=== PATIENT | female | born 1960 | race Caucasian/White ===

== ENCOUNTER 2023-12-12 16:05 | Observation (INO) | payer OTHER ==
[~2023-12-12] VITALS: Ht 172.7 cm; Wt 72.5 kg
[2023-12-12] MEDS ORDERED: ZINC220CA PO (16:20)
[2023-12-12] MEDS ORDERED: LISI10TA22 PO (16:20)
[2023-12-12] MEDS ORDERED: B-1100TA2 PO (16:20)
[2023-12-12] MEDS ORDERED: VITA250T27 PO (16:20)
[2023-12-12] MEDS ORDERED: OCUVTAB4 PO (16:20)
[2023-12-12 16:47] LABS: BASO # 0.1 10^3/uL (0.0-0.2); BASO % 0.8 % (0.0-1.0); EOS # 0.3 10^3/uL (0.0-0.5); EOS % 4.2 % (0.0-3.0); HEMATOCRIT 44.1 % (36.0-47.0); HEMOGLOBIN 14.8 g/dl (12.0-15.5); LYMPH # 1.7 10^3/uL (1.5-5.0); LYMPH % 26.9 % (24.0-44.0); MEAN CORPUSCULAR HEMOGLOBIN 33.3 pg (27.0-33.0); MEAN CORPUSCULAR HGB CONC 33.6 g/dl (32.0-36.5); MEAN CORPUSCULAR VOLUME 99.3 fl (80.0-96.0); MONO # 0.6 10^3/uL (0.0-0.8); MONO % 9.4 % (2.0-8.0); NEUTROPHILS # 3.7 10^3/uL (1.5-8.5); NEUTROPHILS % 58.5 % (36.0-66.0); PLATELET COUNT, AUTOMATED 315 10^3/uL (150-450); RED BLOOD COUNT 4.44 10^6/uL (4.00-5.40); WHITE BLOOD COUNT 6.4 10^3/uL (4.0-10.0)
[2023-12-12] MEDS: EPINEPHrine INJ 1 MG/ML 1ML AMP IM STA (16:50)
[2023-12-12 16:54] LABS: ERYTHROCYTE SEDIMENTATION RATE 12 mm/hr (0-30)
[2023-12-12] MEDS: diphenhydrAMINE 50MG/ML VIAL IV ONE (16:55)
[2023-12-12] MEDS: methylPREDNISolone 125MG 2ML VIAL IV ONE (16:56)
[2023-12-12] MEDS: FAMOTIDINE 20MG/2ML VIAL IVP ONE (17:01)
[2023-12-12 17:06] LABS: C REACTIVE PROTEIN QUANTITATIV < 0.40 MG/DL (<1.0)
[2023-12-12 17:08] LABS: ALKALINE PHOSPHATASE 74 U/L (46-116); ALT/SGPT 27 U/L (7.0-40); AST/SGOT 22 U/L (<34); BILIRUBIN,DIRECT 0.2 MG/DL (<0.4); BLOOD UREA NITROGEN 21 MG/DL (9-23); CARBON DIOXIDE LEVEL 30 MMOL/L (20-31); CHLORIDE LEVEL 105 MMOL/L (98-107); CREATININE FOR GFR 0.68 MG/DL (0.55-1.30); GLOMERULAR FILTRATION RATE > 60.0 (>45); GLUCOSE, FASTING 113 MG/DL (74-106); POTASSIUM SERUM 4.4 MMOL/L (3.5-5.1); SODIUM LEVEL 141 MMOL/L (136-145); TOTAL PROTEIN 7.7 G/DL (5.7-8.2)
[2023-12-12 17:09] LABS: COMPLEMENT C4 29.3 MG/DL (12-36)
[2023-12-12] MEDS: C1 ESTERASE INHIBITOR IV ONE (18:02)
[2023-12-12] MEDS ORDERED: DEXTROSE 50% 50ML SYRINGE IV PRN (18:05)
[2023-12-12] MEDS ORDERED: GLUCAGON INJ 1MG VIAL SC PRN (18:05)
[2023-12-12] MEDS ORDERED: GLUCOSE 4 GM CHEW PO PRN (18:05)
[2023-12-12] MEDS ORDERED: hydrALAZINE 20MG/ML 1ML VIAL IV PRN (18:10)
[2023-12-12] MEDS: NS 1,000 ML IV SCH (18:28)
[2023-12-12] MEDS ORDERED: HOME MED LIST COMPLETE! XX SCH (19:20)
[2023-12-12 21:58] VITALS: BP 178/91; TEMP 97.9; O2SAT 95
[2023-12-13] VITALS (7 sets, daily range): BP systolic 149–170; BP diastolic 61–93; TEMP 97.9–98.5; O2SAT 93–94
[2023-12-13] MEDS: diphenhydrAMINE 50MG/ML VIAL IV SCH (00:07)
[2023-12-13] MEDS: methylPREDNISolone 125MG 2ML VIAL IV SCH (00:07)
[2023-12-13] MEDS: FAMOTIDINE 20MG/2ML VIAL IVP SCH (09:00)
[2023-12-13] MEDS ORDERED: ACETAMINOPHEN TAB 650MG DOSE (2X325MG) PO PRN (09:40)
[2023-12-13] MEDS ORDERED: PRED10TA2 PO (11:35)
[2023-12-13] MEDS ORDERED: AMLO1TAB25 PO (11:35)
[2023-12-13] MEDS: CARVedilol 6.25 MG TAB PO ONE (11:57)
[2023-12-13] MEDS ORDERED: CARV6.25 PO (13:10)
== END 2023-12-13 15:57 | disposition home or self-care (01) ==
LOC: M ED 16:05 → M ED INP 16:06 → M ICU 21:53
PROVIDERS: ADMIT Internal Medicine; ATTEND Internal Medicine
DX: G52.1 Disorders of glossopharyngeal nerve (principal); T78.3XXA Angioneurotic edema, initial encounter; I10 Essential (primary) hypertension; K14.0 Glossitis; Z79.899 Other long term (current) drug therapy
CPT/HCPCS: 80048; 80076; 85025; 85652; 86140; 86160; 93005; 93041; 94760; 96372; 96374; 96375; 96376; 99285; J0171; J0597; J1200; J2919; S0028

== ENCOUNTER 2024-01-26 00:51 | Emergency (ER) | payer OTHER ==
[~2024-01-26] VITALS: Ht 172.7 cm; Wt 73.6 kg
[~2024-01-26 00:51] MED LIST: AMLO1TAB25 PO; B-1100TA2 PO; CARV6.25 PO; LISI10TA22 PO; OCUVTAB4 PO; PRED10TA2 PO; VITA250T27 PO; ZINC220CA PO
[2024-01-26] MEDS: NS 1,000 ML IV ONE (01:30)
[2024-01-26] MEDS: FAMOTIDINE 20MG/2ML VIAL IVP ONE (01:30)
[2024-01-26] MEDS: diphenhydrAMINE 50MG/ML VIAL IV ONE (01:30)
[2024-01-26] MEDS: dexAMETHasone 20MG/5ML VIAL IV ONE (01:30)
[2024-01-26 01:46] LABS: BASO # 0.1 10^3/uL (0.0-0.2); BASO % 1.1 % (0.0-1.0); EOS # 0.3 10^3/uL (0.0-0.5); EOS % 5.4 % (0.0-3.0); HEMATOCRIT 41.6 % (36.0-47.0); HEMOGLOBIN 14.3 g/dl (12.0-15.5); LYMPH # 2.1 10^3/uL (1.5-5.0); LYMPH % 38.3 % (24.0-44.0); MEAN CORPUSCULAR HEMOGLOBIN 33.6 pg (27.0-33.0); MEAN CORPUSCULAR HGB CONC 34.4 g/dl (32.0-36.5); MEAN CORPUSCULAR VOLUME 97.9 fl (80.0-96.0); MONO # 0.5 10^3/uL (0.0-0.8); MONO % 9.4 % (2.0-8.0); NEUTROPHILS # 2.5 10^3/uL (1.5-8.5); NEUTROPHILS % 45.6 % (36.0-66.0); PLATELET COUNT, AUTOMATED 251 10^3/uL (150-450); RED BLOOD COUNT 4.25 10^6/uL (4.00-5.40); WHITE BLOOD COUNT 5.5 10^3/uL (4.0-10.0)
[2024-01-26 02:08] LABS: BLOOD UREA NITROGEN 21 MG/DL (9-23); CALCIUM LEVEL 9.8 MG/DL (8.3-10.6); CARBON DIOXIDE LEVEL 28 MMOL/L (20-31); CHLORIDE LEVEL 106 MMOL/L (98-107); COMPLEMENT C4 29.4 MG/DL (12-36); CREATININE FOR GFR 0.61 MG/DL (0.55-1.30); GLOMERULAR FILTRATION RATE > 60.0 (>45); GLUCOSE, FASTING 97 MG/DL (74-106); POTASSIUM SERUM 3.5 MMOL/L (3.5-5.1); SODIUM LEVEL 142 MMOL/L (136-145)
[2024-01-26 04:30] VITALS: BP 148/85; TEMP 99.3; O2SAT 96
[2024-01-26] MEDS ORDERED: PEPC1TAB5 PO (04:40)
[2024-01-26] MEDS ORDERED: CETI-24 PO (04:40)
[2024-01-26] MEDS ORDERED: PRED20TA PO (04:40)
[2024-01-29 14:02] LABS: C1 ESTER INHIB. NON FUNCTIONAL 28 mg/dL (21-39)
[2024-01-29 20:58] LABS: C1 ESTERASE INHIB. FUNCTIONAL 94 % (>=68)
== END 2024-01-26 04:51 | disposition home or self-care (01) ==
LOC: M ED 00:51
DX: T78.3XXA Angioneurotic edema, initial encounter (principal); I10 Essential (primary) hypertension; F17.200 Nicotine dependence, unspecified, uncomplicated; Z88.8 Allergy status to other drugs, medicaments and biological substances; Z79.52 Long term (current) use of systemic steroids; Z79.1 Long term (current) use of non-steroidal anti-inflammatories (NSAID); Z79.899 Other long term (current) drug therapy
CPT/HCPCS: 80048; 83519; 85025; 86160; 86161; 93041; 94760; 96361; 96374; 99285; J1100; J1200; S0028

== ENCOUNTER → 2024-02-09 | Outpatient (CLI) | payer OTHER ==
[~2024-02-09] MED LIST changes: +CETI-24 PO; +PEPC1TAB5 PO; +PRED20TA PO
== END ==
LOC: M RAD 11:24
PROVIDERS: ATTEND Internal Medicine
DX: M25.562 Pain in left knee (principal)